=== PATIENT | female | born 1995 | race Caucasian/White ===

== ENCOUNTER → 2020-08-11 | Day surgery (SDC) | payer SELFPAY ==
[~2020-08-11] MED LIST: Bupivacaine 0.5%/EPINEPHrine 1:200,000 50 ML MDV ONE; HYDROmorphone 0.5 MG/0.5 ML Syringe IVPUSH PRN; Ketamine 500 mg/10 ML MDV ONE; Lactated Ringers 1,000 ML IV SCH; Lidocaine 1% 4 ML ONE; Lidocaine 1%/Sod Bicarbonate in NS 8.4% 1 ML Syringe IDERM PRN; Midazolam 1 MG/ML 2 ML SDV ONE; Ondansetron 4 MG/2 ML SDV IVPUSH PRN; Ondansetron 4 MG/2 ML SDV ONE; Propofol 200 MG/20 ML SDV ONE; Sodium Chloride 0.9% 10 ML Syringe FLUSH PRN; fentaNYL 100 MCG/2 ML SDV IVPUSH PRN; fentaNYL 100 MCG/2 ML SDV ONE; oxyCODONE 5 MG Tab PO ONE
--- NOTE | 2020-08-11 22:43 | PCM.HP.2 ---
H&P History of Present Illness - General Date of Service: 08/11/20 Admit Problem/Dx: right thigh abscess Source of Information: Patient History Limitations: Reports: No Limitations - History of Present Illness Initial Comments - Free Text/Narative: Ms. Acharya is a 25 yo woman who presents with right proximal medial thigh pain, swelling, redness that started about three days ago. She has had small boils in the past but nothing like this. She denies medical history. Surgical history includes tonsillectomy. She takes no medications, has no allergies, and no family history of immunocompromise or autoimmune disease. Right Upper Thigh Pain Score (Numeric/FACES): 5 - Related Data Allergies/Adverse Reactions: Allergies Allergy/AdvReac Type Severity Reaction Status Date / Time No Known Allergies Allergy Verified 07/07/14 17:55 Home Medications: Home Meds Melatonin 1 mg PO BEDTIME PRN 07/07/14 [History] Hydrocodone/Acetaminophen [Hydrocodone-Acetamn 7.5-325/15] 15 ml PO Q4H PRN #480 ml 07/08/14 [Rx] H&P Review of Systems - Review of Systems: Review Of Systems: See Below General: Reports: No Symptoms HEENT: Reports: No Symptoms Pulmonary: Reports: No Symptoms Cardiovascular: Reports: No Symptoms Gastrointestinal: Reports: No Symptoms Genitourinary: Reports: No Symptoms Musculoskeletal: Reports: No Symptoms Skin: Reports: Other (right thigh abscess/cellulitis) Psychiatric: Reports: No Symptoms Neurological: Reports: No Symptoms Hematologic/Lymphatic: Reports: No Symptoms Immunologic: Reports: No Symptoms Exam - Exam Exam: See Below - Vital Signs Vital Signs: Last Vital Signs Temp 36.9 C 08/11/20 22:26 Pulse 115 H 08/11/20 22:26 Resp 20 08/11/20 22:26 BP 143/91 H 08/11/20 22:26 Pulse Ox 97 08/11/20 22:26 Weight: 125.509 kg - Exam General: Alert, Oriented, Cooperative HEENT: Conjunctiva Clear, Other (hirsuit) Lungs: Clear to Auscultation, Normal Respiratory Effort Cardiovascular: Regular Rate, Regular Rhythm GI/Abdominal Exam: Soft (Female) Exam: Normal External Exam Rectal (Female) Exam: Deferred Skin: Other (right medial proximal thigh with about 15 cm area of erythema, with smaller area of induration, tenderness and some fluctuance. ) Psychiatric: Alert, Normal Affect, Normal Mood Sepsis Event Note - Evaluation Sepsis Screening Result: No Definite Risk - Focused Exam Vital Signs: Vital Signs Temp Pulse Resp BP Pulse Ox 08/11/20 22:26 36.9 C 115 H 20 143/91 H 97 Problem List Initiated/Reviewed/Updated: Yes Orders Last 24hrs: Active Orders 24 hr Category Date Time Status CORONAVIRUS COVID-19 TRACY [MOLEC] Stat Lab 08/11/20 22:38 Ordered Schedule Procedure [COMM] Routine Oth 08/11/20 22:38 Ordered Assessment/Plan Comment:: Right thigh abscess plan for incision and drainage in OR - Mortality Measure Prognosis:: Good
--- NOTE | 2020-08-11 22:54 | PCM.PREANE ---
Preanesthetic Assessment - Procedure Proposed Procedure: I and D of Right Thigh Abscess - Anesthesia/Transfusion/Family Hx Anesthesia History: Prior Anesthesia Without Reaction Other Type of Anesthesia Reaction Comment: Mom has PONV from anesthesia but si blings has no problems w anesthesia Family History of Anesthesia Reaction: No Transfusion History: No Prior Transfusion(s) Intubation History: Unknown - Review of Systems General: No Symptoms Pulmonary: No Symptoms (Smoker: 1/2 ppd times 3-4 yrs, Vape: 3-4 times/month, ETOH: occasionally Marijuana:QOD) Cardiovascular: No Symptoms, Dyspnea on Exertion Gastrointestinal: No Symptoms (GERD), Nausea (earlier but better now.) Neurological: No Symptoms, Headache, Numbness (CTS left hand) Other: Reports: Depression (situational- passing of mom) - Physical Assessment NPO Status Date: 08/11/20 NPO Status Time: 12:00 Vital Signs: Last Vital Signs Temp 36.9 C 08/11/20 22:26 Pulse 115 H 08/11/20 22:26 Resp 20 08/11/20 22:26 BP 143/91 H 08/11/20 22:26 Pulse Ox 97 08/11/20 22:26 Height: 1.65 m Weight: 125.509 kg ASA Class: 3E Mental Status: Alert & Oriented x3 Airway Class: Mallampati = 3 Dentition: Reports: Normal Dentition, Caries Thyro-Mental Finger Breadths: 4 Mouth Opening Finger Breadths: 3 ROM/Head Extension: Full Lungs: Clear to Auscultation, Normal Respiratory Effort Cardiovascular: Regular Rate, Regular Rhythm, No Murmurs - Allergies Allergies/Adverse Reactions: Allergies Allergy/AdvReac Type Severity Reaction Status Date / Time No Known Allergies Allergy Verified 07/07/14 17:55 - Anesthesia Plan Pre-Op Medication Ordered: None - Acknowledgements Anesthesia Type Planned: General Anesthesia, MAC Pt an Appropriate Candidate for the Planned Anesthesia: Yes Alternatives and Risks of Anesthesia Discussed w Pt/Guardian: Yes Pt/Guardian Understands and Agrees with Anesthesia Plan: Yes PreAnesthesia Questionnaire - Past Surgical History HEENT Surgical History: Reports: Tonsillectomy - SUBSTANCE USE Tobacco Use Status *Q: Current Some Day Tobacco User Tobacco Use Within Last Twelve Months: Cigarettes Recreational Drug Use History: No - HOME MEDS Home Medications: Home Meds Melatonin 1 mg PO BEDTIME PRN 05/28/15 [History] Hydrocodone/Acetaminophen [Hydrocodone-Acetamn 7.5-325/15] 15 ml PO Q4H PRN #480 ml 07/08/14 [Rx] - CURRENT (IN HOUSE) MEDS Current Meds: Current Medications Lactated Ringer's (Ringers, Lactated) 1,000 mls @ 125 mls/hr IV ASDIRECTED MATY Lidocaine/Sodium Bicarbonate (Lidocaine 1%/Sod Bicarbonate In Ns 8.4% 1 Ml Syringe) 0.25 ml IDERM ONETIME PRN PRN Reason: Prior to IV Start Sodium Chloride (Sodium Chloride 0.9% 10 Ml Syringe) 10 ml FLUSH ASDIRECTED PRN PRN Reason: Keep Vein Open
--- NOTE | 2020-08-12 00:09 | PCM48HPAN ---
Post Anesthesia Note - EVALUATION WITHIN 48HRS OF ANESTHETIC Vital Signs in Normal Range: Yes Patient Participated in Evaluation: Yes Respiratory Function Stable: Yes Airway Patent: Yes Cardiovascular Function Stable: Yes Hydration Status Stable: Yes Pain Control Satisfactory: Yes Nausea and Vomiting Control Satisfactory: Yes Mental Status Recovered: Yes Vital Signs: Last Vital Signs Temp 36.9 C 08/11/20 22:26 Pulse 115 H 08/11/20 22:26 Resp 20 08/11/20 22:26 BP 143/91 H 08/11/20 22:26 Pulse Ox 97 08/11/20 22:26
--- NOTE | 2020-08-12 00:14 | PCM.PRNOTE ---
- Free Text/Narrative Note: Date: 08/12/2020 Operation: incision and drainage of right thigh abscess Surgeon: Guido Lane MD Findings: right medial proximal thigh abscess with about 20 cc pus drained. Cultures obtained. Detailed Report: The patient was taken to the operating room and placed in supine position. Timeout was performed and monitored anesthesia care was initiated. The patient was then positioned in lithotomy. The right thigh was prepped and draped in usual sterile fashion. 10 cc of 0.5% Marcaine with epinephrine was injected intradermally at the central area where induration was palpated. A 4 cm incision was made along the length of the induration through skin and subcutaneous tissue using 11 blade scalpel. Wound cultures were obtained. A hemostat was inserted into the wound and loculations were broken up. At this point, approximately 20 cc of creamy white purulent fluid without significant malodor was drained. The wound was explored digitally and all loculations were broken up. Satisfied that the abscess was completely drained, moistened Kerlix soaked in iodine was packed into the wound. A dressing of ABD pad and mesh underwear was applied. The patient tolerated the procedure well.
[2020-08-12 00:42] VITALS: BP 127/77; PULSE 118
== END | disposition home or self-care (01) ==
LOC: JD.ED 22:17 → JD.SDS 23:03
PROVIDERS: ATTEND Surgery
DX: L02.415 Cutaneous abscess of right lower limb (principal); F17.210 Nicotine dependence, cigarettes, uncomplicated; Z01.812 Encounter for preprocedural laboratory examination; Z20.822 Contact with and (suspected) exposure to COVID-19; Z79.899 Other long term (current) drug therapy
CPT/HCPCS: 00400; 81025; 87070; 87075; 87205; 99140; J2250; J2405; J2704; J3010; J3490; J7120; U0002